=== PATIENT | female | born 1975 | race Caucasian/White ===

== ENCOUNTER 2018-04-08 05:30 | Emergency (ER) | payer OTHER ==
[~2018-04-08] VITALS: Ht 165.1 cm; Wt 72.1 kg
[2018-04-08 05:37] VITALS: BP 139/91
[2018-04-08 06:36] LABS: BASOPHILS # (AUTO) 0.02 x10^3/uL (0-0.1); BASOPHILS % (AUTO) 0 % (0-1); EOSINOPHILS # (AUTO) 0.11 x10^3/uL (0-0.4); EOSINOPHILS % (AUTO) 2 % (1-7); LYMPHOCYTES # (AUTO) 1.82 x10^3/uL (1-3.4); LYMPHOCYTES % (AUTO) 30 % (22-44); MD NO; MEAN CORPUSCULAR HGB CONC 33.9 g/dL (32.4-35.8); MEAN CORPUSCULAR VOLUME 94.3 fL (80-100); MEAN PLATELET VOLUME 7.4 fL (7.4-10.4); MONOCYTES # (AUTO) 0.44 x10^3/uL (0.2-0.8); MONOCYTES % (AUTO) 7 % (2-9); NEUTROPHILS # (AUTO) 3.65 x10^3/uL (1.8-6.8); NEUTROPHILS % (AUTO) 60 % (42-75); PLATELET COUNT 236 x10^3/uL (130-400); RED BLOOD COUNT 4.51 x10^6/uL (3.82-5.3); RED CELL DISTRIBUTION WIDTH 13.4 % (9.6-15.2)
[2018-04-08 06:47] LABS: ALANINE AMINOTRANSFERASE 51 U/L (12-78); ALBUMIN 3.6 g/dL (3.4-5.0); ANION GAP 7 mmol/L (5-15); CALCIUM 8.9 mg/dL (8.5-10.1); CHLORIDE 109 mmol/L (98-107); CREATININE 0.72 mg/dL (0.55-1.02)
[2018-04-08 06:49] LABS: ALKALINE PHOSPHATASE 81 U/L (45-117); BILIRUBIN,TOTAL 0.4 mg/dL (0.2-1.0)
[2018-04-08 08:13] LABS: MICROSCOPIC NOT IND
[2018-04-08 08:15] LABS: CULTURE INDICATED? NO
== END 2018-04-08 08:26 | disposition home or self-care (01) ==
LOC: ED 08:15
DX: K80.70 Calculus of gallbladder and bile duct without cholecystitis without obstruction (principal)
CPT/HCPCS: 36415; 76700; 80053; 81003; 81025; 83690; 85025; 99285

== ENCOUNTER → 2018-06-28 | Outpatient (CLI) | payer OTHER ==
[~2018-06-28] MED LIST: None per pt
[2018-06-28 11:41] LABS: BASOPHILS # (AUTO) 0.02 x10^3/uL (0-0.1); BASOPHILS % (AUTO) 0 % (0-1); EOSINOPHILS % (AUTO) 1 % (1-7); LYMPHOCYTES # (AUTO) 2.19 x10^3/uL (1-3.4); LYMPHOCYTES % (AUTO) 32 % (22-44); MD NO; MEAN CORPUSCULAR HEMOGLOBIN 31.3 pg (27.0-34.8); MEAN CORPUSCULAR HGB CONC 33.8 g/dL (32.4-35.8); MEAN CORPUSCULAR VOLUME 92.7 fL (80-100); MEAN PLATELET VOLUME 7.5 fL (7.4-10.4); MONOCYTES # (AUTO) 0.38 x10^3/uL (0.2-0.8); MONOCYTES % (AUTO) 6 % (2-9); NEUTROPHILS # (AUTO) 4.24 x10^3/uL (1.8-6.8); NEUTROPHILS % (AUTO) 61 % (42-75); PLATELET COUNT 252 x10^3/uL (130-400); RED BLOOD COUNT 4.87 x10^6/uL (3.82-5.3)
[2018-06-28 11:53] LABS: ANION GAP 9 mmol/L (5-15); CALCIUM 9.1 mg/dL (8.5-10.1); CHLORIDE 107 mmol/L (98-107); CREATININE 0.72 mg/dL (0.55-1.02)
== END | disposition home or self-care (01) ==
LOC: STAR 10:41 → MERGE 11:00
PROVIDERS: ATTEND Surgery
DX: Z01.818 Encounter for other preprocedural examination (principal); K80.10 Calculus of gallbladder with chronic cholecystitis without obstruction
CPT/HCPCS: 36415; 80048; 85025

== ENCOUNTER 2018-07-09 10:15 | Observation (INO) | payer OTHER ==
[~2018-07-09] VITALS: Ht 165.1 cm; Wt 69.9 kg
[2018-07-09] MEDS ORDERED: INDOCYANINE GREEN 25 MG VIAL ONE (11:22)
[2018-07-09] MEDS ORDERED: BUPIVACAINE/PF-EPI 0.5% 1:200K ONE (11:22)
[2018-07-09 14:08] VITALS: BP 139/96
[2018-07-09] MEDS ORDERED: LACTATED RINGERS 1,000 ML IV SCH (14:14)
[2018-07-09] MEDS ORDERED: LORazepam 2 MG/ML, 1ML ONE (14:21)
[2018-07-09] MEDS ORDERED: METOCLOPRAMIDE 5 MG/ML, 2ML IVPush ONE (14:30)
[2018-07-09] MEDS ORDERED: ACETAMINOPHEN 500 MG TABLET PO ONE (14:30)
[2018-07-09] MEDS ORDERED: FAMOTIDINE 20 MG TABLET PO ONE (14:30)
[2018-07-09] MEDS ORDERED: GABAPENTIN 300 MG CAPSULE PO ONE (14:30)
[2018-07-09] MEDS ORDERED: LORazepam 2 MG/ML, 1ML IVPush ONE (14:30)
[2018-07-09 14:31] LABS: HCG UR SG 1.019 (1.003-1.030)
[2018-07-09] MEDS ORDERED: FENTANYL PF 250 MCG/5ML ONE (15:20)
[2018-07-09] MEDS ORDERED: MIDAZOLAM 1 MG/ML, 2ML ONE (15:20)
[2018-07-09] MEDS ORDERED: SUCCINYLCHOLINE 20 MG/ML, 10ML ONE (15:29)
[2018-07-09] MEDS ORDERED: CEFAZOLIN 1,000 MG ONE (15:29)
[2018-07-09] MEDS ORDERED: ROCURONIUM 10MG/ML,5ML ONE (15:29)
[2018-07-09] MEDS ORDERED: KETOROLAC 30 MG/1 ML ONE (15:29)
[2018-07-09] MEDS ORDERED: DEXAMETHASONE 4 MG/ML, 1ML ONE (15:29)
[2018-07-09] MEDS ORDERED: PROPOFOL 50 ML ONE (15:36)
[2018-07-09] MEDS ORDERED: ONDANSETRON 2MG/ML, 2ML IVPush PRN (16:30)
[2018-07-09] MEDS ORDERED: KETOROLAC 30 MG/1 ML IVPush PRN (16:30)
[2018-07-09] MEDS ORDERED: MORPHINE SULFATE 4 MG/ML, 1ML IVPush PRN ×2 (16:30→17:00)
[2018-07-09] MEDS ORDERED: PROMETHAZINE 25 MG/ML, 1ML IV PRN (17:00)
[2018-07-09] MEDS ORDERED: MIDAZOLAM 1 MG/ML, 2ML IV PRN (17:00)
[2018-07-09] MEDS ORDERED: FENTANYL PF 100 MCG/2ML IV PRN (17:00)
[2018-07-09] MEDS ORDERED: MEPERIDINE/PF 25MG/0.5ML IVPush PRN (17:00)
[2018-07-09] MEDS ORDERED: PROMETHAZINE 25 MG SUPP PR PRN (17:00)
[2018-07-09] MEDS ORDERED: PROMETHAZINE 25 MG/ML, 1ML IM PRN (17:00)
[2018-07-09] MEDS ORDERED: EPHEDRINE 50 MG/ML, 1ML IVPush PRN (17:00)
[2018-07-09] MEDS ORDERED: OXYcodone 5 MG/5 ML ORAL.SOL UDC PO PRN (17:00)
[2018-07-09] MEDS ORDERED: DIPHENHYDRAMINE 50 MG/ML, 1ML IVPush PRN (17:00)
[2018-07-09] MEDS ORDERED: ACETAMINOPHEN 325 MG TABLET PO PRN (17:00)
[2018-07-09] MEDS ORDERED: ONDANSETRON ODT 8 MG PO PRN (17:00)
[2018-07-09] MEDS ORDERED: DEXAMETHASONE 4 MG/ML, 1ML IV PRN (17:00)
[2018-07-09] MEDS ORDERED: LABETALOL 5MG/ML, 20ML IV PRN (17:00)
[2018-07-09] MEDS ORDERED: EPHEDRINE 50 MG/ML, 1ML IM PRN (17:00)
[2018-07-09] MEDS ORDERED: ONDANSETRON ODT 8 MG ONE (17:09)
[2018-07-09] MEDS ORDERED: OXYcodone 5 MG/5 ML ORAL.SOL UDC ONE (17:21)
[2018-07-09 21:09] VITALS: BP 127/68
[2018-07-09] MEDS ORDERED: ONDANSETRON ODT 4 MG ONE (22:41)
[2018-07-09] MEDS ORDERED: ONDANSETRON ODT 4 MG PO PRN (23:00)
[2018-07-09] MEDS: HYDROcodone/APAP 7.5-325MG/15ML UDC PO PRN (23:53)
[2018-07-10 00:12] VITALS: BP 150/100
[2018-07-10 04:05] VITALS: BP 134/85
[2018-07-10] MEDS ORDERED: HYDROcodone/APAP 7.5-325MG/15ML UDC ONE (06:35)
[2018-07-10] MEDS: HYDROcodone/APAP 7.5-325MG/15ML UDC PO PRN (06:39)
[2018-07-10 07:02] VITALS: BP 122/77
[2018-07-10] MEDS ORDERED: HYDR-3237 PO (07:44)
[2018-07-10] MEDS ORDERED: ONDA4TAB7 PO (07:45)
[2018-07-10] MEDS ORDERED: HYDROcodone/APAP 7.5-325MG/15ML UDC PO PRN (11:00)
[2018-07-10] MEDS ORDERED: ONDANSETRON ODT 4 MG PO PRN (11:00)
== END 2018-07-10 11:15 | disposition home or self-care (01) ==
LOC: 4NOR 13:33 → OR 13:33 → MERGE 15:30 → EDSTATUS 15:30 → 4NOR 18:13 → OR 18:13 → UNDOFXSDCACCOM 23:30 → OR 23:57
PROVIDERS: ADMIT Surgery; ATTEND Surgery
DX: K80.10 Calculus of gallbladder with chronic cholecystitis without obstruction (principal)
CPT/HCPCS: 47562; 81025; 88304; G0378; J0330; J0690; J1100; J1885; J2060; J2250; J2704; J2765; J3010; J7120; Q0162; S2900

== ENCOUNTER 2019-08-23 12:02 | Emergency (ER) | payer OTHER ==
[~2019-08-23] VITALS: Ht 165.1 cm; Wt 69.7 kg
[~2019-08-23 12:02] MED LIST changes: +HYDR-3237 PO; +ONDA4TAB7 PO
[2019-08-23 13:19] LABS: BASOPHILS # (AUTO) 0.02 x10^3/uL (0-0.1); BASOPHILS % (AUTO) 0 % (0-1); EOSINOPHILS # (AUTO) 0.07 x10^3/uL (0-0.4); EOSINOPHILS % (AUTO) 1 % (1-7); LYMPHOCYTES # (AUTO) 1.68 x10^3/uL (1-3.4); LYMPHOCYTES % (AUTO) 23 % (22-44); MD NO; MEAN CORPUSCULAR HEMOGLOBIN 33.3 pg (27.0-34.8); MEAN CORPUSCULAR HGB CONC 35.4 g/dL (32.4-35.8); MEAN CORPUSCULAR VOLUME 94.1 fL (80-100); MONOCYTES # (AUTO) 0.26 x10^3/uL (0.2-0.8); MONOCYTES % (AUTO) 4 % (2-9); NEUTROPHILS # (AUTO) 5.41 x10^3/uL (1.8-6.8); NEUTROPHILS % (AUTO) 73 % (42-75); PLATELET COUNT 278 x10^3/uL (130-400); RED BLOOD COUNT 4.53 x10^6/uL (3.82-5.3); RED CELL DISTRIBUTION WIDTH 12.8 % (9.6-15.2)
[2019-08-23 13:33] LABS: ALBUMIN 4.2 g/dL (3.4-5.0); ANION GAP 4 mmol/L (5-15); CALCIUM 9.1 mg/dL (8.5-10.1); CHLORIDE 108 mmol/L (98-107)
--- NOTE | 2019-08-23 13:38 | NUR ---
WILDER RN: PT TO ROOM 19 W/ C/O LIGHTHEADEDNESS X 2 DAYS. PT STATES ORIGINAL SX STARTED IN DECEMBER. PT WAS SEEN BY ENT SPECIALIST AND NEUROLOGIST AND HAD MRI DONE W/ RESULTS WNL. PT STATES SHE WAS DX W/ CHRONIC MIGRAINES. WAS RX VERAPAMIL TO HELP W/ VERTIGO/DIZZINESS. PT STATES NO RELIEF. STATES SHE FEELS LIKE SHE IS GOING TO PASS OUT. PT RESTING ON GURNEY. NADN. MONITORS APPLIED.
[2019-08-23 13:39] LABS: ALANINE AMINOTRANSFERASE 29 U/L (12-78); ALKALINE PHOSPHATASE 87 U/L (45-117); BILIRUBIN,TOTAL 0.4 mg/dL (0.2-1.0); FREE T4 (FREE THYROXINE) 1.05 ng/dL (0.76-1.46); TROPONIN I < 0.015 ng/mL (0.000-0.045)
[2019-08-23 13:43] VITALS: BP 150/90
== END 2019-08-23 14:40 | disposition home or self-care (01) ==
LOC: ED 14:34
DX: R55 Syncope and collapse (principal); R42 Dizziness and giddiness; G43.909 Migraine, unspecified, not intractable, without status migrainosus; Z90.89 Acquired absence of other organs
CPT/HCPCS: 36415; 80053; 84439; 84443; 84484; 84703; 85025; 93005; 99284